=== PATIENT | male | born 1935 | race Caucasian/White ===

== ENCOUNTER → 2025-04-19 | Emergency (ER) | payer MEDICARE ==
[~2025-04-19] VITALS: Ht 182.9 cm; Wt 93.0 kg
[2025-04-19 12:17] VITALS: BP 150/52; PULSE 64; RESP 20; TEMP 98.1
--- NOTE | 2025-04-19 12:31 | ERN ---
ED Note History of Present Illness Stated Complaint: ABNORMAL SODIUM LEVEL Chief Complaint: Abnormal Labs Time Seen by MD: 12:17 Time Seen by Midlevel: 12:20 Dictation: Mr. Alvarado is a 89 year old [facility] from history with history of CAD/stent and hypertension who presented to the emergency department this afternoon for evaluation of hyponatremia. He states that he was told by his PCP back home that his sodium was at 1:27 a.m. and that he he should have it rechecked in 1-2 weeks. He reports feeling completely fine. He denies having shortness of breath, edema, chest pain, palpitations, fever/chills, nausea/vomiting, confu pablo, general weakness, headache, seizures, nausea, vomiting, or diarrhea. Allergies: Coded Allergies: No Known Allergies (Unverified Allergy, Unknown, 04/19/25) Past Medical History Past Medical History: CAD, Hypertension Surgical History: Other Surgical History Other: CARDIAC STENT PSYCH History: no pertinent psych hx Social History: Negative, Other ([facility] from [place]) RN Note Reviewed/Agreed w/PFSH: Yes Review of System Dictation REVIEW OF SYSTEMS: CONSTITUTIONAL: Patient denies fevers, chills, sweats and weight changes. EYES: Patient denies any visual symptoms. EARS, NOSE, AND THROAT: No difficulties with hearing. No symptoms of rhinitis or sore throat. CARDIOVASCULAR: Patient denies chest pains, palpitations, orthopnea and paroxysmal nocturnal dyspnea. RESPIRATORY: No dyspnea on exertion, no wheezing or cough. GI: No nausea, vomiting, diarrhea, constipation, abdominal pain, hematochezia or melena. : No urinary hesitancy or dribbling. No nocturia or urinary frequency. No abnormal urethral discharge. MUSCULOSKELETAL: No myalgias or arthralgias. NEUROLOGIC: No chronic headaches, no seizures. Patient denies numbness, tingling or weakness. PSYCHIATRIC: Patient denies problems with mood disturbance. No problems with anxiety. ENDOCRINE: No excessive urination or excessive thirst. DERMATOLOGIC: Patient denies any rashes or skin changes. Initial Vital Sign VS Vital Signs Date Time Temp Pulse Resp B/P (MAP) Pulse Ox O2 Delivery O2 Flow Rate FiO2 04/19/25 12:17 98.1 64 20 150/52 99 Room Air Physical Exam Dictation Vital signs: Reviewed. Afebrile Constitutional: No acute distress. Non-toxic appearing. Head/Face: Normocephalic, atraumatic. Eyes: Periorbital areas with no swelling, redness, or edema. Lids and lashes are normal. Conjunctival injection is absent. Sclera anicteric. Pupils equal, round, reactive to light. ENT: Pinnas intact and no signs of trauma or erythema. Ear canals clear and no discharge. TMs no erythema. No nasal discharge or bleeding noted. Oropharynx with no exudate, redness, swelling, masses, exudates, or evidence of obstruction. Uvula midline. Mucous membranes moist. Neck: Trachea midline, no masses palpated, and no cervical lymphadenopathy. No swelling. Supple, full range of motion. Chest/Axilla: No tenderness, no crepitus, no paradoxical movement, no retractions. Cardiovascular: Regular rate, regular rhythm, no murmur, no gallops. Symmetric pulses. No peripheral edema. Slightly elevated blood pressure; 150/52 Respiratory: Respirations even and unlabored. Lung sounds clear; no wheezes, rales or rhonchi. Room air SpO2 99% Gastrointestinal: Inspection is normal. No distention is appreciated. Bowel sounds are normal. No mass or organomegaly . There is no tenderness. No rebound. No rigidity. No voluntary or involuntary guarding. No Ibrahim's sign. Neurological: Normal speech, gross motor function intact, gross sensory function intact. No focal weakness/Paresthesia. Musculoskeletal/Extremities: All extremities have full range of motion, no pain or tenderness on palpation. Symmetric pulses. Integumentary: Intact. Skin is normal color, warm and dry. Cap refill less than 3 seconds. Results (Laboratory/Radiology) Laboratory/Radiology Laboratory Tests Test 04/19/25 12:34 White Blood Count 7.2 K/uL (4.8-10.8) Red Blood Count 3.53 MIL/uL (4.50-6.20) L Hemoglobin 11.3 g/dL (14.0-18.0) L Hematocrit 33.4 % (42-54) L Mean Corpuscular Volume 94.6 fL (79-99) Mean Corpuscular Hemoglobin 32.0 pg (27.0-33.0) Mean Corpuscular Hemoglobin Concent 33.8 g/dL (32.0-36.0) Red Cell Distribution Width 13.8 % (11.0-15.5) Platelet Count 247 K/uL (130-400) Mean Platelet Volume 9.2 fL (7.5-10.5) Nucleated Red Blood Cells 0.0 % (0.0-0.19) Sodium Level 130 mmol/L (136-145) L Potassium Level 5.9 mmol/L (3.5-5.1) H Chloride Level 97 mmol/L (101-111) L Carbon Dioxide Level 29 mmol/L (21-32) Blood Urea Nitrogen 14 mg/dL (7-18) Creatinine 1.2 mg/dL (0.5-1.3) Glomerular Filtration Rate Calc 58 mL/min (>90) Random Glucose 83 mg/dL (70-105) Total Calcium 8.6 mg/dL (8.5-10.1) Thyroid Stimulating Hormone (TSH) 0.49 uIU/mL (0.36-3.74) Labs Reviewed?: Yes ED Course ED Course Orders Procedure Category Date Status Time Basic Metabolic Panel LAB 04/19/25 Complete 12:25 Cbc Without LAB 04/19/25 Complete Differential 12:25 Thyroid Stimulating LAB 04/19/25 Complete Hormone 12:29 Osmolality Serum LAB 04/19/25 In Process 12:29 Osmolality Urine LAB 04/19/25 Logged 12:29 Urine Sodium,Random LAB 04/19/25 Logged 12:29 12 Lead Ekg Tracing- EKG 04/19/25 Logged Technical 13:39 Magnesium LAB 04/19/25 Logged 13:40 Potassium LAB 04/19/25 Logged 13:40 Vital Signs Date Time Temp Pulse Resp B/P (MAP) Pulse Ox O2 Delivery O2 Flow Rate FiO2 04/19/25 12:17 98.1 64 20 150/52 99 Room Air Uneventful ED course. Vital signs are stable; afebrile with room air SpO2 99%. Patient offers no complaints laboratory findings as noted below. No elevation of WBCs. H&H are 11.3/33.4 Na 130, Cl 97, K5.9, and TSH is within normal limits. His sodium is 130 is improved from prior 127. This is likely chronic, mild hyponatremia. His K was elevated 5.9. An EKG as well as repeat K level draw was ordered. He was not in lobby when he was called to ED room. ED charge nurse placed a phone call to the patient and advised him of laboratory findings. He said he would follow up with a clinic Medical Decision Making MDM MDM: Differential diagnosis: Chronic hyponatremia, mild dehydration/hypovolemic hyponatremia, pseudo hyponatremia, SIADH Rationale: Tests considered and ordered secondary to shared decision making include: Lab Previous outside records reviewed: Old ER visits. Risk of complication and/or morbidity or mortality of patient management: None Medications-Per medication reconciliation Need for hospitalization: Patient does not meet criteria for hospitalization. Need for emergency major/minor surgery: No There are no social concerns with this patient. Prescription drug management Prescriptions will include symptomatic care Patient's prior external medical records from other ER visits were reviewed by me as indicated. Prior testing and results from previous visits were reviewed. Prior tests were taken into account with medical decision making and resource ut ilization, independent historian/historians were used to obtain complete medical history. I independently interpreted the test that were performed, results were reviewed by me and considered findings on radiology if ordered. Medical management and examination interpretation discussions were had by me with other qualified healthcare professionals as indicated for the patient's car e. Critical Care Note Critical Time: 30 minutes DX & DISP Disposition: AMA (not in lobby when called to room) Departure Condition: Stable IVELISSE LAINEZ Apr 19, 2025 12:31
[2025-04-19 12:43] LABS: NUCLEATED RED BLOOD CELLS 0.0 % (0.0-0.19); PLATELET COUNT (AUTO) 247.0 K/uL (130-400); RED BLOOD CELL COUNT(AUTO) 3.53 MIL/uL (4.50-6.20); RED CELL DISTRIBUTION WIDTH 13.8 % (11.0-15.5); WHITE BLOOD COUNT (AUTO) 7.2 K/uL (4.8-10.8)
[2025-04-19 12:53] LABS: CREATININE 1.2 mg/dL (0.5-1.3); GLOMERULAR FILTR. RATE CALC 58.0 mL/min (>90); GLUCOSE,RANDOM 83.0 mg/dL (70-105); SODIUM SERUM 130.0 mmol/L (136-145); UREA NITROGEN, BLOOD 14.0 mg/dL (7-18)
--- NOTE | 2025-04-19 13:40 | NUR ---
ROSIOD OUT PT'S NAME, NOT IN THE LOBBY.
--- NOTE | 2025-04-19 13:45 | NUR ---
CALLED OUT PATIENT'S NAME, PT IS NOT IN LOBBY
--- NOTE | 2025-04-19 13:55 | NUR ---
called pts phone number on file, pt reports he left ED dept. Explained to pt reason to come back to ed for further eval. pt reports he will follow up with his primary care provider.
== END ==
LOC: EDH 12:14
DX: R79.89 Other specified abnormal findings of blood chemistry (principal); I10 Essential (primary) hypertension; I25.10 Atherosclerotic heart disease of native coronary artery without angina pectoris; Z95.5 Presence of coronary angioplasty implant and graft; Z53.29 Procedure and treatment not carried out because of patient's decision for other reasons
CPT/HCPCS: 36415; 80048; 83930; 84443; 85027; 99283